=== PATIENT | female | born 1980 | race Caucasian/White ===

== ENCOUNTER 2021-10-30 09:41 | Outpatient (CLI) | payer OTHER | END 2021-10-30 09:52 | disposition home or self-care (01) | LOC: RAD 09:41 | DX: M99.01 Segmental and somatic dysfunction of cervical region (principal); M99.02 Segmental and somatic dysfunction of thoracic region ==

== ENCOUNTER 2022-12-20 08:41 | Outpatient (CLI) | payer OTHER | END 2022-12-20 09:03 | disposition home or self-care (01) | LOC: SONOGRAMA 08:41 | PROVIDERS: ATTEND General Practice | DX: N63.10 Unspecified lump in the right breast, unspecified quadrant (principal); N63.20 Unspecified lump in the left breast, unspecified quadrant; Z12.31 Encounter for screening mammogram for malignant neoplasm of breast; R07.9 Chest pain, unspecified; R10.10 Upper abdominal pain, unspecified; R07.1 Chest pain on breathing ==

== ENCOUNTER 2023-10-08 11:12 | Outpatient (CLI) | payer OTHER | END 2023-10-08 11:33 | disposition home or self-care (01) | LOC: RAD 11:12 | PROVIDERS: ATTEND Internal Medicine Cardiovascular Disease | DX: M17.9 Osteoarthritis of knee, unspecified (principal); M99.01 Segmental and somatic dysfunction of cervical region; M99.02 Segmental and somatic dysfunction of thoracic region; M54.2 Cervicalgia; M54.6 Pain in thoracic spine | CPT/HCPCS: 72141 ==

== ENCOUNTER 2025-06-28 09:09 | Outpatient (CLI) | payer OTHER | END 2025-06-28 09:23 | disposition home or self-care (01) | LOC: MAMO-SONO 09:09 | DX: N63.11 Unspecified lump in the right breast, upper outer quadrant (principal); N63.21 Unspecified lump in the left breast, upper outer quadrant ==